=== PATIENT | male | born 1940 | race Caucasian/White ===

== ENCOUNTER 2021-11-18 20:03 | Emergency (ER) | payer MEDICARE, BC ==
[~2021-11-18] VITALS: Ht 182.9 cm; Wt 81.7 kg
== END 2021-11-18 23:45 | disposition home or self-care (01) ==
LOC: ER 20:03
DX: S01.111A Laceration without foreign body of right eyelid and periocular area, initial encounter (principal); S09.90XA Unspecified injury of head, initial encounter; S60.512A Abrasion of left hand, initial encounter; S60.511A Abrasion of right hand, initial encounter; S80.212A Abrasion, left knee, initial encounter; S80.211A Abrasion, right knee, initial encounter; V18.0XXA Pedal cycle driver injured in noncollision transport accident in nontraffic accident, initial encounter; Y93.55 Activity, bike riding
CPT/HCPCS: 70450; 72125; 90714